=== PATIENT | female | born 1995 | race Caucasian/White ===

== ENCOUNTER 2020-03-10 01:51 | Emergency (ER) | payer MEDICAID ==
[2020-03-10 04:31] LABS: ABSOLUTE LYMPHOCYTES (AUTO) 1.6 10^3/uL (0.5-4.7); ABSOLUTE MONOCYTES (AUTO) 0.5 10^3/uL (0.1-1.4); BASOPHILS % (AUTO) 0.2 % (0-2); EOSINOPHILS % (AUTO) 0.3 % (0-6); HEMATOCRIT 35.5 % (36.0-47.0); HEMOGLOBIN 12.4 g/dL (12.0-15.5); LYMPHOCYTES % (AUTO) 15.9 % (13-45); MEAN CORPUSCULAR HEMOGLOBIN 30.6 pg (27.0-33.4); MEAN CORPUSCULAR VOLUME 87 fl (80-97); MONOCYTES % (AUTO) 4.8 % (3-13); PLATELET COUNT 160 10^3/uL (150-450); RED BLOOD COUNT 4.07 10^6/uL (3.72-5.28); RED CELL DISTRIBUTION WIDTH 12.8 % (11.5-14.0); SEGMENTED NEUTROPHILS % (AUTO) 78.8 % (42-78); TOTAL CELLS COUNTED % (AUTO) 100 %; WHITE BLOOD COUNT 10.2 10^3/uL (4.0-10.5)
[2020-03-10 04:40] LABS: APPEARANCE,URINE CLEAR; BILIRUBIN,URINE NEGATIVE (NEGATIVE); COLOR,URINE YELLOW; GLUCOSE, URINE NEGATIVE (NEGATIVE); KETONES,URINE NEGATIVE (NEGATIVE); LEUKOCYTE ESTERASE,URINE NEGATIVE (NEGATIVE); NITRITE,URINE NEGATIVE (NEGATIVE); PROTEIN,URINE NEGATIVE (NEGATIVE); URINE SPECIFIC GRAVITY 1.008; UROBILINOGEN,URINE NEGATIVE mg/dL (<2.0)
[2020-03-10] MEDS ORDERED: NORMAL SALINE 1000 ML 1,000 ML IV ONE (06:19)
--- NOTE | 2020-03-10 06:33 | ER Document Report ---
ED General - General Chief Complaint: Vag Bleeding, +preg <12wks Stated Complaint: VAGINAL BLEEDING Time Seen by Provider: 03/10/20 06:00 Mode of Arrival: Stretcher Information source: Patient Notes: Patient is a 24-year-old female, , at approximately 10 weeks gestation. Having abdominal cramping and vaginal bleeding. Describes bleeding greater than a normal menstruation. No nausea vomiting or diarrhea TRAVEL OUTSIDE OF THE [place] IN LAST 30 DAYS: No - Related Data Allergies/Adverse Reactions: No Known Allergies Allergy (Verified 04/02/15 23:08) Past Medical History - Social History Smoking Status: Never Smoker Chew tobacco use (# tins/day): No Frequency of alcohol use: None Drug Abuse: None Family History: Reviewed & Not Pertinent Patient has homicidal ideation: No Psychiatric Medical History: Reports: Hx Depression - major depressive disorder - Immunizations Immunizations up to date: Yes Hx Diphtheria, Pertussis, Tetanus Vaccination: Yes Review of Systems - Review of Systems Notes: Constitutional: No fevers. No chills. EENT: No eye redness. No eye pain. No ear pain. No sore throat. Cardiovascular: No chest pain. No palpitations. Respiratory: No cough. No shortness of breath. No respiratory distress. Gastrointestinal: No abdominal pain. No nausea, vomiting, or diarrhea. Genitourinary: Positive for vaginal bleeding Musculoskeletal: Atraumatic. No swelling. No deformities. Skin: No rash or lesions. Lymphatic: No swollen lymph nodes. Physical Exam - Vital signs Vitals: Temp 98.6 F 03/10/20 01:51 - Notes Notes: General: Well-developed, well-nourished. In no acute distress. Non-toxic appeari ng. Cardiac: Well-perfused. Regular rate and rhythm. No murmurs, rubs, or gallops. Pulmonary: No respiratory distress. No cyanosis. Bilateral lung vieira are clear to auscultation. Abdominal: Non-distended. Non-rigid. Bowels sounds are present in all four quadrants. No guarding or rebound. HEENT: Head is atraumatic. Conjunctivae not reddened. No tearing. PERRL. EOMI. Orbits atraumatic. No periorbital swelling or erythema. Oropharynx is without erythema, swelling, or exudates. Neck: Supple. No adenopathy. No meningismus. Dermatologic: Warm with good turgor. No rash. Atraumatic. Chest: Atraumatic. No chest wall tenderness to palpation. Musculoskeletal: Moves all extremities well. No range of motion deficits. no muscular or joint tenderness. No paraspinal muscle tenderness. no midline spinal tenderness or step-off. Genitourinary: Chaperoned by Jada AGUILAR. External genitalia normal. Speculum exam reveals clotted blood in the vagina. There appears to be some tissue that is being expelled from the os. Neurologic: No gross neurologic deficits. Psychiatric: Normal mood. Course - Re-evaluation Re-evalutation: 03/10/20 08:53 And is a 13,000 quantitative hCG. Her ultrasound shows heterogeneous material i n the endometrium which may be blood and blood clots per the radiologist but nonvisualized ectopic is on the differential. I spoke to Dr. Mendoza regarding the patient's presentation and he wants the patient to follow-up in their clinic tomorrow for repeat beta hCG. Most likely she is miscarrying. Patient aware of findings. Emphasized the importance of following up in the clinic in the morning for repeat beta-hCG. Patient reports understanding of the urgency and the importance of prompt follow-up. - Vital Signs Vital signs: Temp Pulse Resp BP Pulse Ox 98.6 F 76 16 118/68 100 03/10/20 06:43 03/10/20 06:43 03/10/20 06:43 03/10/20 06:43 03/10/20 06:43 - Laboratory Result Diagrams: 03/10/20 03:45 03/10/20 03:45 Laboratory results interpreted by me: 03/10/20 03/10/20 03/10/20 03:45 03:45 03:45 Hct 35.5 L Seg Neutrophils % 78.8 H Creatinine AST Total Protein Albumin Beta HCG, Quant 11077.00 H Urine Blood LARGE H 03/10/20 03:45 Hct Seg Neutrophils % Creatinine 0.49 L AST 13 L Total Protein 5.7 L Albumin 3.2 L Beta HCG, Quant Urine Blood Discharge - Discharge Clinical Impression: Vaginal bleeding in Condition: Good Disposition: HOME, SELF-CARE Instructions: Vaginal Bleeding ([facility]) Additional Instructions: You need to follow-up with the inspector and sorter in the morning. His office address and phone number are included in this paperwork. Call them first thing in the morning and tell them that you were instructed to come back to their clinic tomorrow to have your blood drawn. Referrals: ANUSHA MENDOZA MD [ACTIVE STAFF] - Follow up tomorrow
[2020-03-10 06:44] VITALS: BP 118/68
[2020-03-10 06:54] LABS: ALBUMIN 3.2 g/dL (3.5-5.0); ALKALINE PHOSPHATASE 52 U/L (38-126); ANION GAP 9 (5-19); ASPARTATE AMINO TRANSFERASE 13 U/L (14-36); BILIRUBIN,DIRECT 0.1 mg/dL (0.0-0.4); BILIRUBIN,TOTAL 0.3 mg/dL (0.2-1.3); BLOOD UREA NITROGEN 9 mg/dL (7-20); CALCIUM 8.7 mg/dL (8.4-10.2); CARBON DIOXIDE 22 mmol/L (22-30); CHLORIDE 106 mmol/L (98-107); GLUCOSE 102 mg/dL (75-110); POTASSIUM 3.8 mmol/L (3.6-5.0); TOTAL PROTEIN 5.7 g/dL (6.3-8.2)
--- NOTE | 2020-03-10 07:52 | RADIOLOGY REPORT (SQ) ---
Ultrasound OB transvaginal on 03/10/2020 at 6:51 AM Clinical indications: 10 weeks , vaginal bleeding COMPARISON: None FINDINGS: Multiple sonographic images are obtained throughout the pelvis by transvaginal approach, both transverse and sagittal images are obtained. The uterus is retroverted/retroflexed. The uterus measures approximately 9.0 x 5.3 x 6.8 cm. The endometrium is thickened and heterogeneous with likely blood and clot in the endometrium. Endometrium measures up to 2.5 cm. The right ovary measures approximately 3.4 x 2.4 x 2.4 cm. Flow is demonstrated within the right ovary. Left ovary measures approximately 3.1 x 2.2 x 3.0 cm. Flow is demonstrated in the left ovary. Very small amount of free fluid is noted in the pelvis. No intrauterine is identified. The patient beta hCG is reportedly over 13,000 and an intrauterine should have been identified at that level. The findings are likely related to completed spontaneous with residual blood and clot within the endometrium although please correlate clinically as nonvisualized ectopic is also in the differential. No adnexal mass or fluid collection is noted. IMPRESSION: No intrauterine at a level where an intrauterine should have been identified. Based upon the heterogeneous thickened appearance of the endometrium favor this to be related to a completed spontaneous with residual blood and clot in the endometrium but please correlate clinically to verify the patient has had significant bleeding as a nonvisualized ectopic is also in the differential diagnosis. Recommend appropriate OB follow-up.
== END 2020-03-10 09:24 | disposition home or self-care (01) ==
LOC: ER 01:51
DX: O46.90 Antepartum hemorrhage, unspecified, unspecified trimester (principal); O26.899 Other specified pregnancy related conditions, unspecified trimester; R10.9 Unspecified abdominal pain; Z3A.00 Weeks of gestation of pregnancy not specified
CPT/HCPCS: 99285; 96360; 96361; 86900; 86901; 36415; 84702; 85025; 80053; 81001; 76817; 93976; J7030